=== PATIENT | male | born 1960 | race Caucasian/White ===

== ENCOUNTER 2019-05-06 10:28 | Emergency (ER) | payer MEDICARE, OTHER ==
[~2019-05-06] VITALS: Ht 170.2 cm; Wt 94.8 kg
[~2019-05-06 10:28] MED LIST: AMOX1TAB10 PO; ORA20G7 BUCCAL
[2019-05-06 10:46] VITALS: BP 164/99; PULSE 91; RESP 18; Ht 170.2 cm; Wt 94.8 kg
--- NOTE | 2019-05-06 14:40 | ERD ---
ER Documentation Chief Complaint Chief Complaint sore in mouth not healing x1mth HPI 58-year-old male presenting with a sore throat that is not healing for the last month. Patient states that his pain is in his upper gums and he denies any medications for the symptoms. 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 Denies other medical problems. NKDA. Surgical history denies. Social history denies ROS All systems reviewed and are negative except as per history of present illness. Medications Home Meds Active Scripts Benzocaine* (Orajel Maximum*) 1 Applic Gel, 1 APPLIC BUCCAL DAILY, #1 TUB Prov:JOAN YOUNG PA-C 05/06/19 Amoxicillin/Potassium Clav (Amox-Clav 875-125 mg Tablet) 875-125 mg Tab, 1 TAB PO BID for 7 Days, #14 TAB Prov:JOAN YOUNG PA-C 05/06/19 Allergies Allergies: Coded Allergies: No Known Allergy (Unverified , 05/06/19) PMhx/Soc Anesthesia Reaction: No Hx Neurological Disorder: No Hx Respiratory Disorders: No Hx Cardiac Disorders: Yes (HTN) Hx Psychiatric Problems: No Hx Miscellaneous Medical Probl: No Hx Alcohol Use: Yes Hx Substance Use: Yes Hx Tobacco Use: Yes Smoking Status: Current every day smoker FmHx Family History: No diabetes, No coronary disease, No other Physical Exam Vitals Vital Signs Date Temp Pulse Resp B/P (MAP) Pulse Ox O2 O2 Flow FiO2 Time Delivery Rate 05/06/19 97.4 91 18 164/99 97 10:46 (120) Physical Exam GENERAL: The patient is well-appearing, well-nourished, in no acute distress HEENT: Atraumatic. Conjunctivae are pink. Pupils equal, round, and reactive to light. There is no scleral icterus. Tympanic membranes clear bilaterally. Oropharynx clear. Dentition noted throughout. CHEST: Clear to auscultation bilaterally. There are no rales, wheezes or rhonchi. HEART: Regular rate and rhythm. No murmurs, clicks, rubs or gallops. Procedures/MDM DM: 58-year-old male presenting with sore in the right upper gumline. I have low suspicion for bacterial infection however I will treat patient with antibiotics in case there is an underlying gum infection. Oral pharynx is within normal limits. Patient is told to follow-up with dentist as this is likely gingivitis related or dental related complaint. Patient would benefit from evaluation from specialist and possible biopsy. Patient is discharged with strict ER precautions and told to follow-up with primary care. All questions answered at discharge Departure Diagnosis: Primary Impression: Sore in mouth Condition: Stable Patient Instructions: When Your Child Has Mouth Sores Referrals: [facility] ([facility] walk in clinic) Additional Instructions: FOLLOW UP WITH YOUR PRIMARY CARE PHYSICIAN TOMORROW.Return to this facility if you are not improving as expected. JOAN YOUNG PA-C May 06, 2019 14:40
== END 2019-05-06 11:53 | disposition home or self-care (01) ==
LOC: FTE 10:28
DX: K13.79 Other lesions of oral mucosa (principal); I10 Essential (primary) hypertension; F17.210 Nicotine dependence, cigarettes, uncomplicated
CPT/HCPCS: 99283